=== PATIENT | female | born 1985 | race American Indian/Alaskan Native ===

== ENCOUNTER 2017-06-16 22:45 | Emergency (ER) | payer MEDICAID | END 2017-06-17 00:40 | disposition left against medical advice (07) | LOC: ED 22:45 | DX: N93.9 Abnormal uterine and vaginal bleeding, unspecified (principal); Z53.21 Procedure and treatment not carried out due to patient leaving prior to being seen by health care provider ==

== ENCOUNTER 2017-11-23 00:35 | Outpatient (CLI) | payer OTHER, MEDICAID ==
[2017-11-23] MEDS ORDERED: NORMOSOL-R PH 7.4 1,000 ML IV ONE (00:40)
[2017-11-23 01:22] VITALS: BP 118/71
[2017-11-23] MEDS ORDERED: NORMOSOL-R PH 7.4 1,000 ML IV SCH (01:32)
[2017-11-23 02:15] LABS: Bacteria,Urine 2+ /HPF (Negative); Bilirubin,Urine NEG (Negative); Blood,Urine SM (Negative); Color,Urine Yellow (Yellow); Mucus,Urine FEW /HPF; Urobilinogen,Urine < 2.0 mg/dL (<2.0)
[2017-11-23] MEDS ORDERED: VISTARIL PO ONE (02:42)
--- NOTE | 2017-11-23 02:57 | Ultrasound Report ---
FINAL REPORT PROCEDURE: US OB LIMITED TECHNIQUE: Real-time limited sonographic examination was performed for evaluation of size, position, heartbeat, fluid volume for each fetus with image documentation (1 or more fetuses). CPT 04448 HISTORY: cervical length COMPARISON: No prior studies are available for comparison. FINDINGS: MATERNAL Uterus: Within normal limits . Cervix length: 2.57 cm. Internal Os: Closed . FETUS IUP: Single living intrauterine . Position: Cephalic. Placental position: Posterior, without previa . Amniotic fluid volume: JULIETTE equals 10.3 centimeters. Heart rate and rhythm: 173 BPM. anatomic survey: Not performed.. IMPRESSION: Cervix length: 2.57 cm. Position: Cephalic. Placental position: Posterior, without previa . Amniotic fluid volume: JULIETTE equals 10.3 centimeters. Heart rate and rhythm: 173 BPM.
== END 2017-11-23 02:45 | disposition home or self-care (01) ==
LOC: TRG 00:35
PROVIDERS: ATTEND Obstetrics & Gynecology
DX: O47.1 False labor at or after 37 completed weeks of gestation (principal); Z3A.28 28 weeks gestation of pregnancy
CPT/HCPCS: 59025; 76815; 81001; 96360; Q0177

== ENCOUNTER 2018-01-02 23:36 | Inpatient (IN) | payer OTHER, MEDICAID ==
[2018-01-03] MEDS ORDERED: PEPCID IV ONE (00:07)
[2018-01-03] MEDS ORDERED: REGLAN IV ONE (00:07)
[2018-01-03] MEDS ORDERED: BICITRA PO ONE (00:07)
[2018-01-03] MEDS: LACTATED RINGERS 1,000 ML IV SCH ×2 (00:20→01:04)
[2018-01-03 00:38] LABS: Basophils % (Auto) 0.3 % (0.0-1.8); Eosinophils # (Auto) 0.2 K/mm3 (0.0-0.4); Eosinophils % (Auto) 2.1 % (0.0-4.3); Hematocrit 32.5 % (30.3-42.9); Hemoglobin 10.5 gm/dl (10.1-14.3); Lymphocytes # (Auto) 3.1 K/mm3 (1.2-5.4); Lymphocytes % (Auto) 33.5 % (13.4-35.0); Mean Corpuscular HGB Conc 32 % (30-34); Mean Corpuscular Hemoglobin 28 pg (28-32); Mean Corpuscular Volume 87 fl (79-97); Monocytes # (Auto) 0.7 K/mm3 (0.0-0.8); Monocytes % (Auto) 7.3 % (0.0-7.3); Platelet Count 247 K/mm3 (140-440); Red Blood Count 3.75 M/mm3 (3.65-5.03); Red Cell Distribution Width 15.1 % (13.2-15.2)
[2018-01-03] MEDS ORDERED: ANCEF/STERILE WATER 2 GM/20 ML 2 GM/20 ML SYRINGE IV NR (01:00)
[2018-01-03] MEDS ORDERED: PITOCin/NS 20 UNIT/1000ML DRIP 20 UNITS/1,000 ML BAG IV SCH ×2 (01:00→06:13)
[2018-01-03] MEDS ORDERED: WATER FOR IRRIG STERILE IR ONE (01:30)
[2018-01-03] MEDS ORDERED: NACL 0.9% IR ONE (01:30)
[2018-01-03] MEDS ORDERED: SUBLIMAZE ONE (01:33)
--- NOTE | 2018-01-03 01:45 | History and Physical Report ---
History of Present Illness Date of examination: 01/03/18 Date of admission: 01/02/18 23:36 History of present illness: Is a patient who presented to labor and delivery with complaints of spontaneous rupture membranes at 2300 confirmed by the triage nurse. Patient's course complicated by history of incompetent cervix she is status post cervical cerclage also history of a classical section and history of gestational diabetes. Due to the premature rupture membranes and patient being admitted for repeat section on with removal of cervical cerclage Menstrual History Regularity: regular Menses every: 28 days Duration: 5 LMP: 05/10/2017 LMP reliability: definite LMP character: normal test type: urine test Date: 06/17/2017 BC at conception: none Planned ? no EDC Calculations LMP: 02/14/2018 EDC Confirmation: 02/14/2018 Past History : 4 Term Births: 0 Premature Births: 0 Living Children: 1 Para: 1 Mult. Births: 0 Prev : 1 Aborta: 2 Elect. Ab: 0 Spont. Ab: 2 Ectopics: 0 # 1 Delivery date: 08/18/2012 Weeks Gestation: 26 Delivery type: Hours of labor: 5 Anesthesia type: epidural Delivery location: [facility] Sex: male weight: 2-0 Comments: labor, breech presentation, rupture of membranes Classical C/S with myomectomy # 2 Delivery date: 01/08/2014 Weeks Gestation: 17 Delivery type: Vaginal Anesthesia type: epidural Delivery location: [facility] Sex: male Comments: Suspected chorioamniotis # 3 Delivery date: 09/09/2014 Weeks Gestation: 18 Delivery type: Vaginal Anesthesia type: epidural Delivery location: [facility] Sex: male Comments: Inevitable AB with rupture of membranes Past Medical History: G E R D Cervical incompetence Past Surgical History: (08/18/2012) classical w/ Myomectomy (08/18/2012) D&C: (2013) retained placenta Cervical cerclage (08/11/2014) Family History Summary: Daughter (biol.) - Has No Family History of Diabetes, Hypertension, or Coronary Artery Disease - Please disregard relationships chosen - Entered On: 07/06/2014 General Comments - FH: MS-cousin/aunt No Family History of Diabetes, Hypertension, or Coronary Artery Disease No Family History of Ovarvian Cancer No Family History of DVT/PE on OCP Leukemia Family History of Lung Cancer No Family History of Breast Cancer Social History: Occ ETOH no drugs 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 Past Medical History Abnormal PAP: negative JAMIN Exposure: negative Infertility: negative Uterine Anomaly: positive, Myomas Uterine Surgery (not C/S): negative Social Hx: Occ ETOH no drugs 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 Infection History HIV Risk Eval: no Genetic History Congenital Heart Defect: Mom: no Dad: no Jesse Disease: Mom: no Dad: no Thalassemia Mom: no Dad: no Neural Tube Defect Mom: no Dad: no Down's Syndrome Mom: no Dad: no Moises-Sachs Mom: no Dad: no Sickle Cell Disease/Trait Mom: no Dad: no Hemophilia Mom: no Dad: no Muscular Dystrophy Mom: no Dad: no Cystic Fibrosis Mom: no Dad: no Scurry Chorea Mom: no Dad: no Mental Retardation Mom: no Dad: no Fragile X Mom: no Dad: no Other Genetic/Chromosomal Disorder Mom: no Dad: no Child w/other defect Mom: no Dad: no Enviromental Exposures Xray Exposure: no Medication, drug, or alcohol use since LMP: no Chemical/Other Exposure: no Exposure to Cat Liter: no Hx of Parvovirus (Fifth Disease): no Current Allergies (reviewed today): No known allergies Past History Past Medical History: other (See HPI) Past Surgical History: other (See HPI) [employer] History: other (See HPI) Family/Genetic History: other (See HPI) Social history: other (See HPI) - Obstetrical History Expected Date of Delivery: 02/14/18 Actual Gestation: 34 Week(s) 0 Day(s) : 4 Para: 1 Hx # Term Pregnancies: 0 Number of Pregnancies: 1 Spontaneous Abortions: 2 Induced : 0 Medications and Allergies Allergies Allergy/AdvReac Type Severity Reaction Status Date / Time latex AdvReac Rash Verified 01/03/18 00:00 Home Medications Medication Instructions Recorded Confirmed Last Taken Type Vit 90/Iron Fum/Folic 1 tab PO DAILY 01/07/14 01/03/18 01/02/18 History [ Formula] Ferrous Sulfate [Feosol 325 MG tab] 325 mg PO BID #60 tablet 01/03/18 Unknown Rx Hydroxyprogesterone Caproate 250 mg IM 1XW 01/03/18 01/03/18 01/02/18 History [Charlack] Ibuprofen [Motrin 800 MG tab] 800 mg PO Q6H PRN #30 tablet 01/03/18 Unknown Rx Insulin NPH Human Isophane 20 unit SUB-Q QPM 01/03/18 01/03/18 01/02/18 History [Novolin N] Insulin NPH Human Isophane 30 units SUB-Q QAMDIAB 01/03/18 01/03/18 01/02/18 History [Novolin N] Insulin Regular, Human Inj 20 units SUB-Q QAMDIAB 01/03/18 01/03/18 01/02/18 History [NovoLIN R Inj] Insulin Regular, Human Inj 20 units SUB-Q QPM 01/03/18 01/03/18 01/02/18 History [NovoLIN R Inj] oxyCODONE /ACETAMINOPHEN [Percocet 1 - 2 tab PO Q4H PRN #30 tablet 01/03/18 Unknown Rx 5/325 mg] Active Meds: Active Medications Cefazolin Sodium (Ancef/Sterile Water 2 Gm/20 Ml) 2 gm in 20 mls @ 80 mls/hr IV PREOP NR; Protocol Stop: 01/03/18 23:45 Lactated Ringer's (Lactated Ringers) 1,000 mls @ 2,250 mls/hr IV PREOP RONI Stop: 01/04/18 01:27 Last Admin: 01/03/18 01:04 Dose: 2,250 mls/hr Oxytocin/Sodium Chloride (Pitocin/Ns 20 Unit/1000ml Drip) 20 units in 1,000 mls @ 0 mls/hr IV TITR RONI - Vital Signs Vital signs: Vital Signs Temp Pulse Resp BP Pulse Ox 97.4 F L 68 20 121/77 100 01/02/18 23:54 01/02/18 23:54 01/02/18 23:54 01/02/18 23:54 01/02/18 23:54 Temp Pulse Resp BP Pulse Ox 97.4 F L 67 20 121/77 98 01/02/18 23:54 01/03/18 00:16 01/02/18 23:54 01/02/18 23:54 01/03/18 00:16 - Physical Exam Breasts: Positive: deferred Cardiovascular: Regular rate Lungs: Positive: Normal air movement Abdomen: Positive: normal appearance, soft, normal bowel sounds Genitourinary (Female): Positive: normal external genitalia Cervix: Positive: other (cervical cerclage in place) Extremities: Positive: edema - Obstetrical FHR: category 1 Results Result Diagrams: 01/03/18 00:15 All other labs normal. Assessment and Plan - Patient Problems (1) History of classical section Current Visit: Yes Status: Chronic Plan to address problem: Patient require repeat section.Patient informed the risks of the surgery include bleeding possibly bleeding heavy enough to require blood transfusion, infection possible damage to bowel bladder ureter. All questions answered. Patient agrees to proceed (2) Cervical incompetence affecting management of in third trimester, antepartum Current Visit: Yes Status: Chronic Plan to address problem: Status post cervical cerclage. Will remove cerclage in operating room (3) Gestational diabetes Current Visit: Yes Status: Acute Qualifiers: Gestational diabetes mellitus control: insulin-controlled Trimester: third trimester Qualified Code(s): O24.414 - Gestational diabetes mellitus in , insulin controlled (4) premature rupture of membranes Current Visit: Yes Status: Acute Qualifiers: PROM onset of labor timing: unspecified duration between rupture of membranes and onset of labor Qualified Code(s): O42.919 - premature rupture of membranes, unspecified as to length of time between rupture and onset of labor, unspecified trimester (5) Adult BMI 45.0-49.9 kg/sq m Current Visit: Yes Status: Acute
[2018-01-03] MEDS ORDERED: NACL 0.9% 1000 ML 1,000 ML ONE (01:58)
[2018-01-03] MEDS ORDERED: NEO SYNEPHRINE/NS Syringe(OR USE) IV ONE ×2 (01:59→02:18)
[2018-01-03] MEDS ORDERED: ZOFRAN ONE (01:59)
[2018-01-03] MEDS ORDERED: XYLOCAINE MPF 2% ONE (02:18)
--- NOTE | 2018-01-03 03:44 | Operative Report ---
Operative Report Operative Report: Date of procedure: 01/03/2018 Pre-operative diagnosis: 1 Uterine at 34 weeks with premature rupture membranes 2. History of cervical incompetence status post cervical cerclage. 3. Gestational diabetes 4. History of classical section Post-operative diagnosis: Same plus pelvic adhesive disease Procedure name(s): 1.Repeat section low transverse incision with lysis of adhesions 2.Cerclage removal Surgeon: Isaias Bergeron MD Muck Boss: FATIMAH Anesthesia: Spinal epidural combined EBL: 500 mL Complications: None Findings: She with adhesions between and anterior uterus and omentum and filmy adhesions the posterior uterus and adhesions to the anterior abdominal wall. Normal-appearing uterus tubes and ovaries. Female infant weight 5 lbs. 2 oz. Apgars 8 at 1 minute 9 at 5 minutes Specimen(s): Placenta Procedure: The patient was brought to the operating room. A spinal was placed without any complications. Patient placed in hanging stirrups. Speculum placed in the vagina. Cerclage was seen would not at 12:00. Knot was cut and cerclage removal. She was then placed in left lateral tilt. Prepped and draped in the usual sterile manner. After testing for adequate anesthesia level , a Pfannenstiel incision was made through her previous scar. This incision was taken down to the fascia. The fascia was then nicked in the midline. This incision was extended out laterally with Bingham scissors. The fascia was then sharply and bluntly from the underlying rectus muscles through thick adhesions. The rectus muscles were bluntly and sharply . The peritoneum was then entered with the panel raiser operator's fingers. This incision was spread vertically with care not to damage the bladder below. The bladder flap was then formed sharply and bluntly with Metzenbaum scissors. The Placido self- retaining tractor was then placed without any difficulty. A transverse incision was made in lower uterine segment. This incision was extended laterally with the operators fingers. The amniotic sac was then entered bluntly with the panel raiser operator's fingers. The was delivered from the vertex position. Bulb suction on the mother's abdomen. Cord was double clamped and cut. The was then passed to the nursery personnel who were in attendance. The above scores were given by the nursery personnel. The placenta was then bluntly removed. The uterus was then externalized and wiped clean the remaining products. The uterine incision was closed in layers. The first incision was closed in a locking manner using 0 Vicryl. This was followed by imbricating stitch also with 0 Vicryl. This closure was hemostatic. The bladder flap was copiously irrigated and found to be hemostatic. The pelvis was copiously irrigated and found to be hemostatic. The uterus was then placed back to the patient's abdomen. The retractors were removed. The rectus muscles were inspected and found to be hemostatic. The fascia was then closed in a running manner using 0 Vicryl. This incision was hemostatic irrigation Bovie. The skin was reapproximated with 4-0 Vicryl subcuticularly. The patient tolerated procedure well. Her urine was clear. The infant was admitted to the well baby nursery. The patient was accompanied to recovery room in good condition. Instrument count correct 3
[2018-01-03] MEDS: TORADOL IV PRN ×2 (06:10→15:00)
[2018-01-03] MEDS ORDERED: LANSINOH TP PRN (06:13)
[2018-01-03] MEDS ORDERED: NACL 0.9% 1000 ML 1,000 ML IV SCH (06:13)
[2018-01-03] MEDS ORDERED: ZOFRAN IV PRN ×2 (06:13→06:21)
[2018-01-03] MEDS ORDERED: NORCO 5/325 PO PRN (06:13)
[2018-01-03] MEDS ORDERED: SODIUM CHLORIDE FLUSH SYRINGE 10 ML IV NR (06:13)
[2018-01-03] MEDS ORDERED: NARCAN 0.4 MG/1 ML IV PRN (06:13)
[2018-01-03] MEDS ORDERED: MILK OF MAGNESIA PO PRN (06:13)
[2018-01-03] MEDS ORDERED: TUCKS PAD TP PRN (06:13)
[2018-01-03] MEDS ORDERED: ANCEF/NS 1 GM/50 ML 1 GM/50 ML BAG IV SCH (06:13)
[2018-01-03] MEDS ORDERED: ANUCORT-HC PR PRN (06:13)
--- NOTE | 2018-01-03 08:23 | Event Note ---
Date: 01/03/18 DOS repeat c/s: patient comfortable, no complaints. Dressing Dry and intact. lochia small. Pain well controlled. to see patient and set up with breast pump.
[2018-01-03] MEDS: ceFAZolin 1 GM in NACL 0.9% 20 ML IV SCH ×3 (10:00→17:58)
[2018-01-03] MEDS ORDERED: PERCOCET 5/325 PO PRN ×2 (10:21→10:27)
[2018-01-03] MEDS: PERCOCET 5/325 PO PRN ×3 (11:00→23:43)
[2018-01-03] MEDS: HumuLIN R SUB-Q SCH ×3 (11:46→17:59)
[2018-01-03] MEDS ORDERED: LACTATED RINGERS 0 ML ONE (14:44)
[2018-01-03] MEDS: FEOSOL PO SCH (15:20)
--- NOTE | 2018-01-03 15:25 | Query- General ---
Dear Date: 01/03/2018 Technical Service Rep/CDS:__Chabiancai___ Phone#:____[phone] Exercise your independent professional judgment when responding to this query. Questions asked do not imply a particular answer is desired or expected. We greatly appreciate your clarification on this issue. Clinical Documentation States: A 32 yr old female patient presented to labor and delivery with complaints of spontaneous rupture membranes. Patient's course complicated by history of incompetent cervix. she is status post cervical cerclage also history of a classical section and history of gestational diabetes. Date of procedure: 01/03/2018 (,[facility]) Pr-operative diagnosis: 1 Uterine at 34 weeks with premature rupture membranes Procedure name(s): 1.Repeat section low transverse incision with lysis of adhesions 2.Cerclage removal Clinical Findings Show (include reference to source document): BMI 45.8 kg/sq m Given the above clinical scenario can you please provide an appropriate diagnosis based on your knowledge of the patient: PHYSICIAN RESPONSE: [ ] Obesity [ ] Morbid Obesity [ ] Normal Weight [ ] Overweight [ ] Other( please specify): [ ] Unable to determine Present on Admission: [ ] Yes (Y) [ ] Clinically undeterminable (W) [ ]No(N) Please also document response in your Progress Notes and/or Discharge Summary and indicate if the condition was present on admission. JUSTIND
[2018-01-03] MEDS ORDERED: NACL 0.9% 1000 ML 1,000 ML IV ONE (15:38)
[2018-01-03 16:20] LABS: Hematocrit 24.5 % (30.3-42.9); Hemoglobin 8.2 gm/dl (10.1-14.3)
--- NOTE | 2018-01-03 16:29 | Event Note ---
Date: 01/03/18 Call from RN, patient has only had 300ml output in silveira over the last 8 hours. she reports urine is dark and concentrated. Orders for 500ml bolus and continue monitoring. Call for output less than 30ml/hr.
[2018-01-03] MEDS: MOTRIN PO PRN (23:44)
[2018-01-04] MEDS: HumuLIN R SUB-Q SCH ×3 (06:00→19:22)
[2018-01-04] MEDS: PERCOCET 5/325 PO PRN ×3 (06:09→22:12)
[2018-01-04] MEDS: MOTRIN PO PRN ×2 (06:09→13:35)
[2018-01-04] MEDS ORDERED: MYLICON PO PRN (06:10)
--- NOTE | 2018-01-04 08:29 | Progress Note ---
Assessment and Plan patient doing well, no complaints. pain is well controlled, lochia scant, VSSAF , H&H 8.2/24.5, no s/s anemia. Patient states she is ready to go home when possible, will d/c home tomorrow if stable. - Patient Problems (1) delivery delivered Current Visit: Yes Status: Acute (2) Anemia due to acute blood loss Current Visit: Yes Status: Acute Subjective - Subjective Date of service: 01/04/18 Principal diagnosis: postop day #1 s/p repeat c/s Patient reports: appetite normal, voiding normally, pain well controlled, flatus , ambulating normally, no dizzy ambulation, no nauseated [place]: in NICU Objective - Vital Signs Latest vital signs: Vital Signs Temp Pulse Resp BP BP Pulse Ox 01/04/18 00:00 98.2 F 89 20 99/50 01/03/18 21:20 98.4 F 90 20 121/73 01/03/18 16:39 98.7 F 90 20 116/68 99 Intake and Output 01/03/18 01/04/18 01/04/18 23:59 07:59 15:59 Intake Total 1320 240 Output Total 900 1600 Balance 420 -1360 Intake: Oral 600 240 Intake, Free Water 720 Output: Urine 900 1600 Indwelling Catheter 900 Void 1600 Other: Total, Intake Amount 240 240 Total, Output Amount 600 800 # Voids Void 1 - Exam Breasts: Present: normal Cardiovascular: Present: Regular rate Lungs: Present: Clear to auscultation, Normal air movement Abdomen: Present: normal appearance, soft Vulva: both: normal Uterus: Present: normal, firm, fundal height at umbilicus Extremities: Present: normal Incision: Present: normal, dry, intact - Labs Labs: Abnormal lab results 01/03/18 01/03/18 Range/Units 12:00 16:09 Hgb 8.2 L (10.1-14.3) gm/dl Hct 24.5 L D (30.3-42.9) % POC Glucose 53 L (70-105)
[2018-01-04] MEDS: FEOSOL PO SCH (18:35)
[2018-01-05] MEDS: MOTRIN PO PRN (00:40)
[2018-01-05] MEDS: HumuLIN R SUB-Q SCH ×2 (00:45→06:05)
[2018-01-05] MEDS: PERCOCET 5/325 PO PRN (06:24)
--- NOTE | 2018-01-05 08:24 | Discharge Summary ---
Providers - Providers Date of Admission: 01/02/18 23:36 Date of discharge: 01/05/18 Attending physician: ERICK SMART 01/03/18 06:13 Consult to Health Actuary [CONS] Routine Reason For Exam: Primary care physician: ERICK SMART Hospitalization Reason for admission: PROM, prev c/s Condition: Good Pertinent studies: postop H&H 8.2/24.5 (asymptomatic) Procedures: repeat c/s Hospital course: uncomplicated c/s delivery and course Disposition: - TO HOME OR SELFCARE - Discharge Diagnoses (1) delivery delivered Status: Acute (2) Anemia due to acute blood loss Status: Acute Core Measure Documentation - Palliative Care Palliative Care/ Comfort Measures: Not Applicable - Core Measures Any of the following diagnoses?: none Exam - Constitutional Vitals: Temp Pulse Resp BP Pulse Ox 98.0 F 89 20 121/68 96 01/05/18 01:05 01/05/18 01:05 01/05/18 01:05 01/05/18 01:05 01/05/18 01:05 General appearance: Present: no acute distress, well-nourished - EENT Eyes: Present: PERRL ENT: hearing intact, clear oral mucosa - Neck Neck: Present: supple, normal ROM - Respiratory Respiratory effort: normal Respiratory: bilateral: CTA - Cardiovascular Heart Sounds: Present: S1 & S2. Absent: rub, click - Extremities Extremities: pulses symmetrical, No edema Peripheral Pulses: within normal limits - Abdominal General gastrointestinal: Present: soft, non-tender, non-distended, normal bowel sounds Female genitourinary: Present: normal - Integumentary Integumentary: Present: clear, warm, dry - Musculoskeletal Musculoskeletal: gait normal, strength equal bilaterally - Psychiatric Psychiatric: appropriate mood/affect, intact judgment & insight - Neurologic Neurologic: CNII-XII intact, moves all extremities - Additional findings Additional findings: Lochia scant, fundus firm, incision dry (evidence of small amount of bleeding from center of incision, no active bleeding, skin approximated) VSSAF Plan Activity: no restrictions, advance as tolerated Diet: regular Wound: open to air, keep clean and dry Follow up with: ERICK SMART MD [Primary Care Provider] - 7 Days (Congratulation! please call [phone] to schedule your incision check in1 week. Call for any questions or concerns. ) Prescriptions: Ferrous Sulfate [Feosol 325 MG tab] 325 mg PO BID #60 tablet Ibuprofen [Motrin 800 MG tab] 800 mg PO Q6H PRN #30 tablet PRN Reason: Pain oxyCODONE /ACETAMINOPHEN [Percocet 5/325 mg] 1 - 2 tab PO Q4H PRN #30 tablet PRN Reason: Pain, Moderate
[2018-01-05 08:58] VITALS: BP 102/58
== END 2018-01-05 10:06 | disposition home or self-care (01) | DRG 765 ==
LOC: APU 23:36 → OB 01-03 05:50
PROVIDERS: ADMIT Obstetrics & Gynecology; ATTEND Obstetrics & Gynecology
PROC: 10D00Z1 Extraction of Products of Conception, Low, Open Approach (ICD-10-PCS; principal; 2018-01-03)
PROC: 0UCC7ZZ Extirpation of Matter from Cervix, Via Natural or Artificial Opening (ICD-10-PCS; 2018-01-03)
DX: O34.211 Maternal care for low transverse scar from previous cesarean delivery (principal); O34.33 Maternal care for cervical incompetence, third trimester; D62 Acute posthemorrhagic anemia; O24.414 Gestational diabetes mellitus in pregnancy, insulin controlled; O42.913 Preterm premature rupture of membranes, unspecified as to length of time between rupture and onset of labor, third trimester; Z37.0 Single live birth; Z3A.34 34 weeks gestation of pregnancy; Z91.040 Latex allergy status; Z79.899 Other long term (current) drug therapy; Z79.4 Long term (current) use of insulin
CPT/HCPCS: 36415; 82947; 82962; 85014; 85018; 85025; 86850; 86900; 86901; 88307; 99211; C1765; G0463; J0690; J1885; J2370; J2405; J2590; J2765; J3010; J7030; J7120

== ENCOUNTER 2018-01-16 08:10 | Outpatient (CLI) | payer OTHER, MEDICAID ==
[2018-01-16] MEDS ORDERED: XYLOCAINE TOPICAL 4% TP ONE ×2 (08:34→08:41)
== END 2018-01-16 08:11 | disposition home or self-care (01) ==
LOC: WOUND 08:10
PROVIDERS: ATTEND Nurse Practitioner
DX: T81.31XA Disruption of external operation (surgical) wound, not elsewhere classified, initial encounter (principal); Z87.891 Personal history of nicotine dependence; Y83.8 Other surgical procedures as the cause of abnormal reaction of the patient, or of later complication, without mention of misadventure at the time of the procedure
CPT/HCPCS: 11043; G0463; 99214

== ENCOUNTER 2018-01-23 09:29 | Outpatient (CLI) | payer OTHER, MEDICAID | END 2018-01-23 09:30 | disposition home or self-care (01) | LOC: WOUND 09:29 | PROVIDERS: ATTEND Surgery | DX: T81.31XD Disruption of external operation (surgical) wound, not elsewhere classified, subsequent encounter (principal); Z87.891 Personal history of nicotine dependence; Y83.8 Other surgical procedures as the cause of abnormal reaction of the patient, or of later complication, without mention of misadventure at the time of the procedure | CPT/HCPCS: 99214; G0463 ==

== ENCOUNTER 2018-01-30 09:13 | Outpatient (CLI) | payer OTHER, MEDICAID ==
[2018-01-30] MEDS ORDERED: XYLOCAINE TOPICAL 4% TP ONE ×2 (09:37→12:52)
[2018-01-30] MEDS ORDERED: SILVER NITRATE TP ONE ×2 (09:51→12:52)
== END 2018-01-30 09:14 | disposition home or self-care (01) ==
LOC: WOUND 09:13
PROVIDERS: ATTEND Surgery
DX: T81.31XD Disruption of external operation (surgical) wound, not elsewhere classified, subsequent encounter (principal); Z87.891 Personal history of nicotine dependence; Y83.8 Other surgical procedures as the cause of abnormal reaction of the patient, or of later complication, without mention of misadventure at the time of the procedure
CPT/HCPCS: 97597; 97605

== ENCOUNTER 2018-01-31 12:09 | Outpatient (CLI) | payer OTHER, MEDICAID | END 2018-01-31 12:10 | disposition home or self-care (01) | LOC: WOUND 12:09 | PROVIDERS: ATTEND Surgery | DX: T81.89XD Other complications of procedures, not elsewhere classified, subsequent encounter (principal); Z87.891 Personal history of nicotine dependence; Y83.8 Other surgical procedures as the cause of abnormal reaction of the patient, or of later complication, without mention of misadventure at the time of the procedure | CPT/HCPCS: 99214; G0463 ==

== ENCOUNTER 2018-02-06 09:08 | Outpatient (CLI) | payer OTHER, MEDICAID ==
[2018-02-06] MEDS ORDERED: XYLOCAINE TOPICAL 4% TP ONE ×2 (09:29→09:43)
[2018-02-06] MEDS ORDERED: SILVER NITRATE TP ONE ×2 (09:49→14:04)
== END 2018-02-06 09:09 | disposition home or self-care (01) ==
LOC: WOUND 09:08
PROVIDERS: ATTEND Surgery
DX: T81.89XD Other complications of procedures, not elsewhere classified, subsequent encounter (principal); Z87.891 Personal history of nicotine dependence; Y83.8 Other surgical procedures as the cause of abnormal reaction of the patient, or of later complication, without mention of misadventure at the time of the procedure
CPT/HCPCS: 99213; G0463

== ENCOUNTER 2018-02-13 09:25 | Outpatient (CLI) | payer OTHER, MEDICAID | END 2018-02-13 09:26 | disposition home or self-care (01) | LOC: WOUND 09:25 | PROVIDERS: ATTEND Surgery | DX: T81.89XD Other complications of procedures, not elsewhere classified, subsequent encounter (principal); Z87.891 Personal history of nicotine dependence; Y83.8 Other surgical procedures as the cause of abnormal reaction of the patient, or of later complication, without mention of misadventure at the time of the procedure | CPT/HCPCS: 99213; G0463 ==

== ENCOUNTER 2018-02-27 09:35 | Outpatient (CLI) | payer OTHER, MEDICAID ==
[2018-02-27] MEDS ORDERED: XYLOCAINE TOPICAL 4% TP ONE ×2 (10:13→10:28)
== END 2018-02-27 09:36 | disposition home or self-care (01) ==
LOC: WOUND 09:35
PROVIDERS: ATTEND Surgery
DX: T81.31XD Disruption of external operation (surgical) wound, not elsewhere classified, subsequent encounter (principal); Z87.891 Personal history of nicotine dependence; Y83.8 Other surgical procedures as the cause of abnormal reaction of the patient, or of later complication, without mention of misadventure at the time of the procedure

== ENCOUNTER 2018-03-13 09:39 | Outpatient (CLI) | payer OTHER, MEDICAID | END 2018-03-13 09:40 | disposition home or self-care (01) | LOC: WOUND 09:39 | PROVIDERS: ATTEND Surgery | DX: T81.89XD Other complications of procedures, not elsewhere classified, subsequent encounter (principal); Z87.891 Personal history of nicotine dependence; Y83.8 Other surgical procedures as the cause of abnormal reaction of the patient, or of later complication, without mention of misadventure at the time of the procedure | CPT/HCPCS: 99214; G0463 ==

== ENCOUNTER 2018-03-20 09:00 | Outpatient (CLI) | payer OTHER, MEDICAID | END 2018-03-20 09:01 | disposition home or self-care (01) | LOC: WOUND 09:00 | PROVIDERS: ATTEND Surgery | DX: T81.31XD Disruption of external operation (surgical) wound, not elsewhere classified, subsequent encounter (principal); Y83.8 Other surgical procedures as the cause of abnormal reaction of the patient, or of later complication, without mention of misadventure at the time of the procedure; Z87.891 Personal history of nicotine dependence | CPT/HCPCS: 99214; G0463 ==

== ENCOUNTER 2018-03-27 09:04 | Outpatient (CLI) | payer OTHER, MEDICAID | END 2018-03-27 09:05 | disposition home or self-care (01) | LOC: WOUND 09:04 | PROVIDERS: ATTEND Surgery | DX: T81.31XD Disruption of external operation (surgical) wound, not elsewhere classified, subsequent encounter (principal); Z87.891 Personal history of nicotine dependence; Y83.8 Other surgical procedures as the cause of abnormal reaction of the patient, or of later complication, without mention of misadventure at the time of the procedure | CPT/HCPCS: 97597 ==

== ENCOUNTER 2018-04-03 09:03 | Outpatient (CLI) | payer OTHER, MEDICAID | END 2018-04-03 09:04 | disposition home or self-care (01) | LOC: WOUND 09:03 | PROVIDERS: ATTEND Surgery | DX: T81.31XD Disruption of external operation (surgical) wound, not elsewhere classified, subsequent encounter (principal); Z87.891 Personal history of nicotine dependence; Y83.8 Other surgical procedures as the cause of abnormal reaction of the patient, or of later complication, without mention of misadventure at the time of the procedure | CPT/HCPCS: 99213; G0463 ==

== ENCOUNTER 2018-04-17 09:07 | Outpatient (CLI) | payer OTHER, MEDICAID | END 2018-04-17 09:08 | disposition home or self-care (01) | LOC: WOUND 09:07 | PROVIDERS: ATTEND Surgery | DX: T81.31XD Disruption of external operation (surgical) wound, not elsewhere classified, subsequent encounter (principal); Z87.891 Personal history of nicotine dependence; Y83.8 Other surgical procedures as the cause of abnormal reaction of the patient, or of later complication, without mention of misadventure at the time of the procedure | CPT/HCPCS: 99214; G0463 ==

== ENCOUNTER 2018-04-24 08:57 | Outpatient (CLI) | payer OTHER, MEDICAID | END 2018-04-24 08:58 | disposition home or self-care (01) | LOC: WOUND 08:57 | PROVIDERS: ATTEND Surgery | DX: T81.31XD Disruption of external operation (surgical) wound, not elsewhere classified, subsequent encounter (principal); Z87.891 Personal history of nicotine dependence; Y83.8 Other surgical procedures as the cause of abnormal reaction of the patient, or of later complication, without mention of misadventure at the time of the procedure | CPT/HCPCS: 99214; G0463 ==